=== PATIENT | male | born 1940 | race Caucasian/White ===

== ENCOUNTER 2024-10-30 16:48 | Inpatient (IN) ==
[2024-10-30] MEDS ORDERED: IOPAMIDOL 100 ML BOTTLE IV ONE (16:49)
[2024-10-30 17:54] LABS: Basophils # (Auto) 0.05 K/mcL (0.00-0.30); Basophils % (Auto) 0.3 % (0.0-2.0); Eosinophils # (Auto) 0.03 K/mcL (0.00-0.70); Eosinophils % (Auto) 0.2 % (0.0-7.0); Hematocrit 27.8 % (40.1-51.0); Hemoglobin 8.1 g/dL (13.7-17.5); Lymphocytes # (Auto) 0.96 K/mcL (1.50-4.80); Lymphocytes % (Auto) 6.3 % (15.5-49.0); Mean Corpuscular HGB Conc 29.1 g/dL (31.0-36.0); Monocytes # (Auto) 2.38 K/mcL (0.10-0.90); Monocytes % (Auto) 15.6 % (1.0-12.0); Neutrophils % (Auto) 77.3 % (38.0-78.0); Platelet Count 334 K/mcL (140-440); RBC 4.07 M/mcL (4.63-6.08); WBC 15.3 K/mcL (4.5-11.0)
[2024-10-30 17:57] LABS: Alcohol,Blood < 0.010 gm/dL (<0.010)
[2024-10-30] MEDS ORDERED: ONDANSETRON 4 MG/2 ML VIAL IV PRN (20:43)
[2024-10-30] MEDS: PIPERACILLIN SODIUM/TAZOBACTAM 3.375 GM in DEXTROSE 5% IN WATER 50 ML IV ONE (20:46)
[2024-10-30] MEDS: 0.9 % SODIUM CHLORIDE 10 ML SYRINGE IV SCH (21:18)
[2024-10-30] MEDS: SENNOSIDES 1 TABLET PO SCH (21:19)
[2024-10-30] MEDS: ACETAMINOPHEN 325 MG TABLET PO PRN (23:19)
[2024-10-31] MEDS: PIPERACILLIN SODIUM/TAZOBACTAM 4.5 GM in DEXTROSE 5% IN WATER 100 ML IV SCH (00:59)
[2024-10-31 06:07] LABS: Basophils # (Auto) 0.05 K/mcL (0.00-0.30); Basophils % (Auto) 0.3 % (0.0-2.0); Eosinophils # (Auto) 0.03 K/mcL (0.00-0.70); Eosinophils % (Auto) 0.2 % (0.0-7.0); Hematocrit 27.8 % (40.1-51.0); Hemoglobin 8.1 g/dL (13.7-17.5); Lymphocytes # (Auto) 1.00 K/mcL (1.50-4.80); Lymphocytes % (Auto) 5.9 % (15.5-49.0); Mean Corpuscular HGB Conc 29.1 g/dL (31.0-36.0); Monocytes # (Auto) 2.43 K/mcL (0.10-0.90); Monocytes % (Auto) 14.3 % (1.0-12.0); Neutrophils % (Auto) 78.9 % (38.0-78.0); Platelet Count 309 K/mcL (140-440); RBC 4.05 M/mcL (4.63-6.08); WBC 17.0 K/mcL (4.5-11.0)
[2024-10-31 06:18] LABS: ALT/SGPT 47 U/L (<40); AST/SGOT 169 U/L (<40); Albumin 3.1 gm/dL (3.2-5.2); Albumin/Globulin Ratio 1.0 (1.0-2.3); Alkaline Phosphatase 201 U/L (39-117); Anion Gap 12.0 (8.0-16.0); Bilirubin,Direct 0.5 mg/dL (<0.3); Bilirubin,Total 1.0 mg/dL (0.1-1.0); Blood Urea Nitrogen 20 mg/dL (8-23); Calcium 9.2 mg/dL (8.6-10.4); Carbon Dioxide 22 mmol/L (22-30); Chloride 101 mmol/L (96-108); Globulin 3.0 gm/dL (2.2-3.7); Glucose 131 mg/dL (70-105); Phosphorous 3.3 mg/dL (2.5-4.5); Potassium 4.4 mmol/L (3.3-5.1); Sodium 135 mmol/L (133-145); Triglycerides 85 mg/dL (<150); Uric Acid 4.2 mg/dL (2.5-8.0)
[2024-10-31 08:11] LABS: Iron 9 ug/dL (61-157); TIBC Calculation 267 ug/dl (228-428); Transferrin % Saturation 3 % (20-50)
[2024-10-31 08:21] LABS: Ferritin 98.1 ng/mL (30.0-400.0)
[2024-10-31] MEDS: ENOXAPARIN 40 MG/0.4 ML SYRINGE SQ SCH (09:17)
[2024-10-31 14:24] LABS: INR 1.3 (0.9-1.1); Partial Thromboplastin Time 45.1 sec (20.0-37.0); Prothrombin Time 17.3 sec (11.9-14.5)
[2024-10-31] MEDS: fentaNYL 100 MCG/2 ML VIAL IV ONE (14:41)
[2024-10-31] MEDS: MIDAZOLAM 2 MG/2 ML VIAL IV ONE (14:42)
[2024-10-31] MEDS ORDERED: METHOCARBAMOL 750 MG TABLET PO PRN (19:19)
[2024-10-31] MEDS ORDERED: GABAPENTIN 300 MG CAPSULE PO SCH (19:30)
[2024-10-31] MEDS: OMEPRAZOLE 20 MG CAPSULE PO SCH (20:31)
[2024-10-31] MEDS: MONTELUKAST 10 MG TABLET PO SCH (20:31)
[2024-10-31] MEDS: METOPROLOL SUCCINATE 25 MG TAB.XL.24H PO SCH (20:33)
[2024-10-31] MEDS: MELATONIN 3 MG TABLET PO PRN (20:36)
[2024-10-31] MEDS: LORazepam 2 MG/ML VIAL IV PRN (23:00)
[2024-11-01 06:37] LABS: ALT/SGPT 37 U/L (<40); AST/SGOT 104 U/L (<40); Albumin 2.9 gm/dL (3.2-5.2); Albumin/Globulin Ratio 0.9 (1.0-2.3); Alkaline Phosphatase 184 U/L (39-117); Anion Gap 14.0 (8.0-16.0); Bilirubin,Direct 0.5 mg/dL (<0.3); Bilirubin,Total 0.9 mg/dL (0.1-1.0); Blood Urea Nitrogen 20 mg/dL (8-23); Calcium 9.1 mg/dL (8.6-10.4); Carbon Dioxide 20 mmol/L (22-30); Chloride 100 mmol/L (96-108); Globulin 3.1 gm/dL (2.2-3.7); Glucose 119 mg/dL (70-105); Phosphorous 3.5 mg/dL (2.5-4.5); Potassium 4.1 mmol/L (3.3-5.1); Sodium 134 mmol/L (133-145); Triglycerides 98 mg/dL (<150); Uric Acid 3.4 mg/dL (2.5-8.0)
[2024-11-01 06:46] LABS: Basophils # (Auto) 0.05 K/mcL (0.00-0.30); Basophils % (Auto) 0.3 % (0.0-2.0); Eosinophils # (Auto) 0.07 K/mcL (0.00-0.70); Eosinophils % (Auto) 0.5 % (0.0-7.0); Hematocrit 26.0 % (40.1-51.0); Hemoglobin 7.7 g/dL (13.7-17.5); Lymphocytes # (Auto) 0.90 K/mcL (1.50-4.80); Lymphocytes % (Auto) 6.1 % (15.5-49.0); Mean Corpuscular HGB Conc 29.6 g/dL (31.0-36.0); Monocytes # (Auto) 2.19 K/mcL (0.10-0.90); Monocytes % (Auto) 14.8 % (1.0-12.0); Neutrophils % (Auto) 78.0 % (38.0-78.0); Platelet Count 305 K/mcL (140-440); RBC 3.85 M/mcL (4.63-6.08); WBC 14.8 K/mcL (4.5-11.0)
[2024-11-01] MEDS: fentaNYL 100 MCG/2 ML VIAL IV ONE (09:20)
[2024-11-01] MEDS: MIDAZOLAM 2 MG/2 ML VIAL IV ONE (09:20)
[2024-11-01] MEDS ORDERED: LIDOCAINE 1% 10 ML VIAL SQ ONE (09:41)
[2024-11-01] MEDS: AMPICILLIN SODIUM/SULBACTAM NA 3 GM in 0.9 % SODIUM CHLORIDE 100 ML IV SCH (10:42)
[2024-11-02 07:06] LABS: ALT/SGPT 42 U/L (<40); AST/SGOT 89 U/L (<40); Albumin 2.9 gm/dL (3.2-5.2); Albumin/Globulin Ratio 0.9 (1.0-2.3); Alkaline Phosphatase 218 U/L (39-117); Anion Gap 11.0 (8.0-16.0); Bilirubin,Direct 0.4 mg/dL (<0.3); Bilirubin,Total 0.7 mg/dL (0.1-1.0); Blood Urea Nitrogen 23 mg/dL (8-23); Calcium 8.9 mg/dL (8.6-10.4); Carbon Dioxide 21 mmol/L (22-30); Chloride 104 mmol/L (96-108); Globulin 3.4 gm/dL (2.2-3.7); Glucose 107 mg/dL (70-105); Phosphorous 3.3 mg/dL (2.5-4.5); Potassium 4.2 mmol/L (3.3-5.1); Sodium 136 mmol/L (133-145); Triglycerides 102 mg/dL (<150); Uric Acid 4.1 mg/dL (2.5-8.0)
[2024-11-02 07:10] LABS: Basophils # (Auto) 0.06 K/mcL (0.00-0.30); Basophils % (Auto) 0.5 % (0.0-2.0); Eosinophils # (Auto) 0.09 K/mcL (0.00-0.70); Eosinophils % (Auto) 0.7 % (0.0-7.0); Hematocrit 26.8 % (40.1-51.0); Hemoglobin 7.8 g/dL (13.7-17.5); Lymphocytes # (Auto) 0.91 K/mcL (1.50-4.80); Lymphocytes % (Auto) 7.3 % (15.5-49.0); Mean Corpuscular HGB Conc 29.1 g/dL (31.0-36.0); Monocytes # (Auto) 1.94 K/mcL (0.10-0.90); Monocytes % (Auto) 15.5 % (1.0-12.0); Neutrophils % (Auto) 75.8 % (38.0-78.0); Platelet Count 320 K/mcL (140-440); RBC 3.95 M/mcL (4.63-6.08); WBC 12.6 K/mcL (4.5-11.0)
[2024-11-02 11:25] VITALS: TEMP 98.7; O2SAT 98
== END 2024-11-02 12:15 | disposition home or self-care (01) | DRG 375 ==
LOC: ED 16:48 → MEDSUR 20:34
PROVIDERS: ADMIT Internal Medicine; ATTEND Internal Medicine